=== PATIENT | male | born 1960 | race African-American/Black ===

== ENCOUNTER 2016-11-21 12:57 | Emergency (ER) | payer SELFPAY ==
[~2016-11-21] VITALS: Ht 167.6 cm; Wt 100.0 kg
[2016-11-21] MEDS ORDERED: CARVEDILOL25 MG PO (13:10)
[2016-11-21] MEDS ORDERED: HYDRALAZINE100 MG PO (13:10)
[2016-11-21] MEDS ORDERED: NIFEDIPINE30 MG PO (13:10)
[2016-11-21] MEDS ORDERED: ISOSORBIDE MONO30 MG PO (13:11)
[2016-11-21] MEDS ORDERED: PROTONIX20 M1 PO (13:11)
[2016-11-21] MEDS ORDERED: SIMVASTATIN40 MG PO (13:11)
[2016-11-21] MEDS ORDERED: ASPIRIN EC325 MG PO (13:12)
[2016-11-21] MEDS ORDERED: NAPROSYN500 MG PO (15:08)
[2016-11-21 15:13] VITALS: BP 151/87
== END 2016-11-21 15:25 | disposition home or self-care (01) | DRG 556 ==
LOC: ED 12:57
DX: M25.562 Pain in left knee (principal); I10 Essential (primary) hypertension; M25.561 Pain in right knee

== ENCOUNTER 2020-10-30 07:03 | Emergency (ER) | payer SELFPAY ==
[~2020-10-30] VITALS: Ht 167.6 cm; Wt 72.0 kg
[~2020-10-30 07:03] MED LIST: ASPIRIN EC325 MG PO; CARVEDILOL25 MG PO; HYDRALAZINE100 MG PO; ISOSORBIDE MONO30 MG PO; NAPROSYN500 MG PO; NIFEDIPINE30 MG PO; PROTONIX20 M1 PO; SIMVASTATIN40 MG PO
[2020-10-30] MEDS ORDERED: ZOFRAN4 MG/TAB PO (10:26)
[2020-10-30 10:35] VITALS: BP 116/76
== END 2020-10-30 10:35 | disposition home or self-care (01) | DRG 866 ==
LOC: ED 07:03
DX: B34.9 Viral infection, unspecified (principal); I10 Essential (primary) hypertension; Z20.822 Contact with and (suspected) exposure to COVID-19